=== PATIENT | male | born 1945 | race Caucasian/White ===

== ENCOUNTER 2019-05-17 09:34 | Outpatient (REF) | payer MEDICARE, BC, SELFPAY ==
[2019-05-17 22:16] LABS: Abs Immature Grans 0.01 k/cumm (0.0-0.09); Absolute Basophil Count 0.09 k/cumm (0.0-0.2); Absolute Lymphocyte Count 0.98 k/cumm (1.2-3.4); Absolute Monocyte Count 0.74 k/cumm (0.11-0.7); Absolute Neutrophil Count 5.02 k/cumm (1.2-6.7); Basophils % 1.2; Eosinophils % 6.8; HCT 40.6 % (40.0-50.0); HGB 13.6 g/dL (13.5-17.5); Immature Grans % 0.1; Lymphocytes % 13.4; Mean Corp. HGB Concentration 33.5 g/dL (32.0-36.0); Mean Corpuscular Hemoglobin 29.4 pg (27.0-33.0); Mean Corpuscular Volume 87.9 fL (80-95); Mean Platelet Volume 10.2 fL (8.0-11.0); Monocytes % 10.1; Neutrophils % 68.4; Platelet Count 225 x1000/uL (130-400); RBC 4.62 m/cumm (4.50-6.00); RBC Distribution Width 15.3 % (11.8-14.1); White Blood Cell Count 7.34 k/cumm (4.4-10.8)
[2019-05-17 22:34] LABS: Iron 57 ug/dL (50-175); Total Iron Binding Capacity 334 ug/dL (250-450); Transferrin Sat 17 % (20-55)
[2019-05-17 22:48] LABS: Hemoglobin A1C 6.7 % (4.5-6.2)
[2019-05-17 22:53] LABS: ALT 38 U/L (12-78); AST 35 U/L (15-37); Albumin 3.6 g/dL (3.4-5.0); Alkaline Phosphatase 138 U/L (46-116); Anion Gap 11.3 mmol/L (3-11); BUN 22 mg/dL (7-18); Bilirubin, Total 0.8 mg/dL (0.2-1.0); CO2 26.7 mmol/L (21.0-32.0); CREATININE 0.77 mg/dL (0.70-1.30); Calcium 9.2 mg/dL (8.5-10.1); Calculated LDL 108 mg/dL; Chloride 106 mmol/L (98-107); Cholesterol 171 mg/dL (50-200); Ferritin 91 ng/mL (8-388); Glucose 105 mg/dL (70-100); HDL Cholesterol 55 mg/dL (40-60); Potassium 4.3 mmol/L (3.5-5.1); Sodium 144 mmol/L (136-145); TSH (W/Ref FT4) 2.54 uIU/mL (0.358-3.74); Total Protein 7.4 g/dL (6.4-8.2); Triglyceride 43 mg/dL (30-150)
== END 2019-05-17 09:54 ==
LOC: NCHCN 09:34
PROVIDERS: Visit Provider Family Medicine
DX: D64.9 Anemia, unspecified (principal); R73.09 Other abnormal glucose; E78.5 Hyperlipidemia, unspecified; M11.80 Other specified crystal arthropathies, unspecified site; M10.9 Gout, unspecified; R06.02 Shortness of breath; R09.89 Other specified symptoms and signs involving the circulatory and respiratory systems; M21.371 Foot drop, right foot
CPT/HCPCS: 80053; 80061; 83721; 82728; 83036; 83540; 83550; 84443; 84550; 85025